=== PATIENT | female | born 1975 | race Caucasian/White ===

== ENCOUNTER 2016-11-13 15:36 | Emergency (ER) | payer MEDICARE, MEDICAID ==
--- NOTE | 2016-11-13 16:19 | ED Physician Documentation ---
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 has dental appt in few days. presently taking ibu and flexeril. plus HMP Onset: days ago (5-6) Context: denies: Fractured Tooth, Abscess Associated Symptoms: sore throat. denies: fever Worsened By: other (opening mouth-diff to speak) - ROS CONST: no problems CVS/RESP: none GI/: denies: problems urinating MS/SKIN/LYMPH: denies: muscle aches NEURO/PSYCH: none - PAST HX Past History: other (recurrent TMJ ggh) Other History: none Allergies/Adverse Reactions: Allergies Allergy/AdvReac Type Severity Reaction Status Date / Time caffeine Allergy Intermediate Hives Verified 10/28/16 23:41 [From Excedrin Aspirin Free] Home Medications: Ambulatory Orders Medication Instructions Recorded Lorazepam [Lorazepam] 1 tab PO TID 08/27/15 Prazosin HCl [Minipress] 1 tab PO HS 08/27/15 Cyclobenzaprine HCl [Flexeril] 10 mg PO D 06/19/16 QUEtiapine FUMARATE [Seroquel] 07/07/16 Trazodone HCl [Trazodone HCl] 100 mg PO D 07/07/16 - SOCIAL HX Smoking History: less than 1 pack/day Alcohol Use: none Drug Use: none - FAMILY HX Family History: No - VITAL SIGNS Vital Signs: Vital Signs Temp Pulse Resp BP Pulse Ox 98.2 F 111 H 16 114/55 98 11/13/16 15:57 11/13/16 15:57 11/13/16 15:57 11/13/16 15:57 11/13/16 15:57 - REVIEWED ASSESSMENTS Nursing Assessment Reviewed: Yes Vitals Reviewed: Yes Dental Pain Physical Exam - EXAM General Appearance: moderate distress Head/Neck: head nml inspection, mandibular swelling (L), cervical lymphadenopathy Mouth/Throat: lips nml, gums nml Ear/Nose: nml inspection Respiratory: no resp. distress, breath sounds nml CVS: reg. rate & rhythm, heart sounds nml Abdomen: soft, non-tender Extremities: non-tender, nml ROM Skin: warm/dry, normal color. No: cyanosis, diaphoresis, jaundice Neuro/Psych: depression. No: weakness, numbness Discharge Clincal Impression: acute exaberation chronic TMJ syndrome Home Medications: Ambulatory Orders Lorazepam [Lorazepam] 1 tab PO TID 08/27/15 Prazosin HCl [Minipress] 1 tab PO HS 08/27/15 Cyclobenzaprine HCl [Flexeril] 10 mg PO D 06/19/16 QUEtiapine FUMARATE [Seroquel] 07/07/16 Trazodone HCl [Trazodone HCl] 100 mg PO D 07/07/16 Comments: see dentist as scheduled Condition: Good Disposition: 01 HOME, SELF-CARE Decision to Admit: NO Decision Time: 16:23
[2016-11-13 16:28] VITALS: BP 117/72
== END 2016-11-13 16:25 | disposition home or self-care (01) ==
LOC: ED 15:36
DX: M26.629 Arthralgia of temporomandibular joint, unspecified side (principal)
CPT/HCPCS: 99282

== ENCOUNTER 2016-12-24 01:02 | Emergency (ER) | payer MEDICARE, MEDICAID ==
[2016-12-24] MEDS: ACETAMINOPHEN 500 MG TABLET PO ONE (01:34)
[2016-12-24] MEDS: AMOXICILLIN 500 MG CAPSULE PO ONE (01:34)
--- NOTE | 2016-12-24 01:36 | ED Physician Documentation ---
Sore Throat/Dental Pain - HISTORIAN Historian: patient - HPI Stated Complaint: dental pain Chief Complaint: Dental Pain Additional Information: Toothache x 2 days with taste of infection in her mouth. Recent dental extraction in the last week. Will see new dentist in that office soon. - ROS CONST: no problems - PAST HX Past History: none (right sided extraction a few days ago.) Other History: other (bipolar) Allergies/Adverse Reactions: Allergies Allergy/AdvReac Type Severity Reaction Status Date / Time caffeine Allergy Intermediate Hives Verified 12/24/16 01:19 [From Excedrin Aspirin Free] Home Medications: Ambulatory Orders Medication Instructions Recorded Lorazepam [Lorazepam] 1 tab PO QID 08/27/15 Prazosin HCl [Minipress] 1 tab PO HS 08/27/15 Cyclobenzaprine HCl [Flexeril] 10 mg PO D 06/19/16 QUEtiapine FUMARATE [Seroquel] 200 mg PO BID 07/07/16 Amoxicillin [Trimox] 500 mg PO TID #30 capsule 12/24/16 - SOCIAL HX Smoking History: cigarettes - FAMILY HX Family History: No - VITAL SIGNS Vital Signs: Vital Signs Temp Pulse Resp BP Pulse Ox 98.7 F 96 H 16 129/87 98 12/24/16 01:05 12/24/16 01:05 12/24/16 01:05 12/24/16 01:05 12/24/16 01:05 - REVIEWED ASSESSMENTS Nursing Assessment Reviewed: Yes Vitals Reviewed: Yes ED Results Lab/Radiology - Orders Orders: ED Orders Category Date Time Status Acetaminophen [Tylenol Extra Strength] Med 12/24/16 01:32 Once 1,000 mg PO NOW ONE Amoxicillin [Amoxil] Med 12/24/16 01:30 Once 500 mg PO NOW ONE Dental Pain Physical Exam - EXAM General Appearance: alert, mild distress Head/Neck: head nml inspection, trachea midline, no lymphadenopathy, other (#12 fractured with 1/4 visible tooth absent) Eyes: eyes nml inspection Mouth/Throat: lips nml, pharynx nml, voice nml, no drooling, no air way problems Ear/Nose: nml inspection Respiratory: no resp. distress Extremities: nml ROM (gait) Skin: warm/dry, normal color Neuro/Psych: No: weakness Discharge Clincal Impression: Pain due to dental caries Prescriptions: Amoxicillin [Trimox] 500 mg PO TID #30 capsule Additional Instructions: Take all the antibiotics as prescribed. See the dentist as soon as possible. Home Medications: Ambulatory Orders Lorazepam [Lorazepam] 1 tab PO QID 08/27/15 Prazosin HCl [Minipress] 1 tab PO HS 08/27/15 Cyclobenzaprine HCl [Flexeril] 10 mg PO D 06/19/16 QUEtiapine FUMARATE [Seroquel] 200 mg PO BID 07/07/16 Amoxicillin [Trimox] 500 mg PO TID #30 capsule 12/24/16 Condition: Fair Disposition: 01 HOME, SELF-CARE Decision to Admit: NO Decision Time: 01:35
[2016-12-24 01:43] VITALS: BP 140/78
== END 2016-12-24 01:40 | disposition home or self-care (01) ==
LOC: ED 01:02
DX: K02.9 Dental caries, unspecified (principal)
CPT/HCPCS: 99282; 99283

== ENCOUNTER 2017-02-13 11:44 | Outpatient (CLI) | payer MEDICARE, OTHER | END 2017-02-13 11:45 | LOC: LAB 11:44 | PROVIDERS: ATTEND Family Medicine | DX: D35.2 Benign neoplasm of pituitary gland (principal) | CPT/HCPCS: 36415; 84146; 84443 ==

== ENCOUNTER 2017-03-27 10:59 | Outpatient (CLI) | payer MEDICARE, OTHER | END 2017-03-27 11:00 | LOC: LAB 10:59 | PROVIDERS: ATTEND Neurological Surgery | DX: D35.2 Benign neoplasm of pituitary gland (principal) | CPT/HCPCS: 36415; 82533; 83003; 83525; 84146; 84439; 84443; 84479 ==

== ENCOUNTER 2017-08-30 14:33 | Outpatient (CLI) | payer MEDICARE, OTHER ==
[2017-08-30 14:53] LABS: BASOPHILS % 0.2 (0.0-1.5); EOSINOPHILS % 3.5 % (0.0-6.8); MEAN CORPUSCULAR HEMOGLOBIN 26.6 pg (28.0-34.0); MEAN CORPUSCULAR VOLUME 82.1 fl (80.0-100.0); MONOCYTES % 2.9 % (0.0-11.0); NEUTROPHILS # 4.1 # k/uL (1.4-7.7)
== END 2017-08-30 14:34 ==
LOC: LAB 14:33
PROVIDERS: ATTEND Psychiatry & Neurology Psychiatry
DX: Z79.899 Other long term (current) drug therapy (principal)
CPT/HCPCS: 36415; 80156; 85025

== ENCOUNTER 2017-09-19 09:27 | Emergency (ER) | payer MEDICARE, OTHER ==
--- NOTE | 2017-09-19 09:40 | ED Physician Documentation ---
Nausea/Vomiting/Diarrhea - HISTORIAN Historian: patient - HPI Stated Complaint: nausea vomiting and diarrhea since Sunday Chief Complaint: Nausea,Vomiting,Diarrhea Onset: days ago Duration: constant Last known Well Date: 09/08/17 Last Known Well Time: 10:00 Last known Well Code/Unknown Code: Unknown Timing: gradual onset Context: denies: out of country travel, bad food, recent trauma Severity: moderate Further Comments: no - Associated Symptoms Vomiting: frequent. denies: bloody, bilious, feculent Diarrhea: copious, watery. denies: mucous, bloody, blood-streaked Abdominal Pain: cramping, aching - ROS CONST: chills. denies: recent illness CVS/RESP: denies: shortness of breath, cough GI/: denies: constipation, black stools, bloody urine, bloody stools, dark urine, problems urinating EYES/ENT: denies: problems with vision, sore throat MS/SKIN/LYMPH: denies: rash, swollen glands, ankle swelling NEURO/PSYCH: headache. denies: fainting, anxiety - PAST HX Past History: none Other History: other Surgeries/Procedures: other Immunizations: referred to PCP Allergies/Adverse Reactions: Allergies Allergy/AdvReac Type Severity Reaction Status Date / Time caffeine Allergy Intermediate Hives Verified 09/19/17 09:51 [From Excedrin Aspirin Free] Home Medications: Ambulatory Orders Medication Instructions Recorded Lorazepam [Lorazepam] 1 tab PO TID 08/27/15 Prazosin HCl 1 mg PO DAILY av 07/18/17 Carbamazepine [Tegretol Xr] 200 mg PO BID 09/19/17 Fluphenazine HCl [Prolixin] 2.5 mg PO DAILY 09/19/17 Ondansetron HCl Rapdis [Zofran Odt] 4 mg PO Q8 #20 tab 09/19/17 - SOCIAL HX Smoking History: cigarettes Alcohol Use: none Drug Use: none - FAMILY HX Family History: none - VITAL SIGNS Vital Signs: Vital Signs Temp Pulse Resp BP Pulse Ox 96.7 F L 105 H 20 112/67 98 09/19/17 09:27 09/19/17 09:27 09/19/17 09:27 09/19/17 09:27 09/19/17 09:27 - REVIEWED ASSESSMENTS Nursing Assessment Reviewed: Yes Vitals Reviewed: Yes ED Results Lab/Radiology - Lab Results Lab Results: Lab Results 09/19/17 09/19/17 09:50 09:50 WBC 7.50 K/ul K/ul (4.00-12.00) RBC 4.84 M/ul M/ul (3.90-5.20) Hgb 12.9 g/dL g/dL (12.0-16.0) Hct 39.9 % % (34.5-46.5) MCV 82.3 fl fl (80.0-100.0) MCH 26.6 pg L pg (28.0-34.0) MCHC 32.3 g/dL g/dL (30.0-36.0) RDW 14.2 % % (11.3-14.3) Plt Count 262 K/mm3 K/mm3 (130-400) Neut % (Auto) 62.9 % % (39.0-79.0) Lymph % (Auto) 26.0 % % (16.0-50.0) [place] % (Auto) 5.0 % % (0.0-11.0) Eos % (Auto) 5.1 % % (0.0-6.8) Baso % (Auto) 0.3 (0.0-1.5) Neut # (Auto) 4.7 # k/uL # k/uL (1.4-7.7) Lymph # (Auto) 2.0 # k/uL # k/uL (0.6-4.0) [place] # (Auto) 0.4 # k/uL # k/uL (0.0-0.9) Eos # (Auto) 0.4 # k/uL # k/uL (0.0-0.6) Baso # (Auto) 0.0 # k/uL # k/uL (0.0-0.5) Reactive Lymphs % 0.8 % % (0.0-5.0) Reactive Lymphs # 0.1 # k/uL # k/uL (0.0-0.8) Sodium 137 mmol/L mmol/L (136-145) Potassium 4.0 mmol/L mmol/L (3.5-5.1) Chloride 102 mmol/L mmol/L (98-107) Carbon Dioxide 27 mmol/L mmol/L (22-30) BUN 11 mg/dL mg/dL (7-17) Creatinine 0.60 mg/dL mg/dL (0.52-1.04) Estimated Creat Clear 283 Est GFR ( Amer) > 60 (60 - ) Est GFR (Non-Af Amer) > 60 (60 - ) Glucose 122 mg/dL H mg/dL (74-106) Calcium 8.9 mg/dL mg/dL (8.4-10.2) Total Bilirubin 0.2 mg/dL mg/dL (0.2-1.3) AST 41 U/L U/L (15-46) ALT 46 U/L U/L (13-69) Alkaline Phosphatase 97 U/L U/L (38-126) Total Protein 7.4 g/dL g/dL (6.3-8.2) Albumin 4.0 g/dL g/dL (3.5-5.0) - Orders Orders: ED Orders Category Date Time Status Place IV Lock 1T Care 09/19/17 09:46 Active CBC/PLATELET/DIFF Routine Lab 09/19/17 09:50 Completed CMP [CMP] Routine Lab 09/19/17 09:50 Completed UA W/MICRO IF INDICATED Routine Lab 09/19/17 09:47 Uncollected 0.9 % Sodium Chloride [Normal Saline] 1,000 ml Med 09/19/17 09:47 Discontinued IV Q1H Ondansetron HCl/Pf [Zofran 4 mg/2 ml] Med 09/19/17 09:49 Discontinued 4 mg IVP NOW ONE Nausea Physical Exam - EXAM General Appearance: no acute distress EENT: eye inspection normal Neck: normal inspection Respiratory: no resp distress, chest non-tender, breath sounds normal CVS: reg rate & rhythm, heart sounds normal, equal pulses, no murmur Abdomen: non-tender, no organomegaly, abnml bowel sounds (hyperactive ). No: guarding, McBurney's point tender, Rovsing's sign Skin: warm/dry, normal color Extremities: non-tender, normal range of motion Neuro/Psych: oriented X3, CN's nml as tested Discharge Clincal Impression: Gastroenteritis Prescriptions: Ondansetron HCl Rapdis [Zofran Odt] 4 mg PO Q8 #20 tab Referrals: Taylor Riley MD [Primary Care Provider] - 2 Days Condition: Stable Disposition: 01 HOME, SELF-CARE Decision to Admit: NO Date of Decison to Admit: 09/19/17 Decision Time: 11:02
[2017-09-19 09:58] LABS: BASOPHILS % 0.3 (0.0-1.5); EOSINOPHILS % 5.1 % (0.0-6.8); MEAN CORPUSCULAR HEMOGLOBIN 26.6 pg (28.0-34.0); MEAN CORPUSCULAR VOLUME 82.3 fl (80.0-100.0); NEUTROPHILS # 4.7 # k/uL (1.4-7.7)
[2017-09-19 10:06] LABS: eGFR (African) > 60; eGFR (Non-African) > 60
[2017-09-19] MEDS: 0.9 % SODIUM CHLORIDE 1,000 ML IV ONE (10:06)
[2017-09-19] MEDS: ONDANSETRON HCL/PF 4 MG/ 2ML VIAL IVP ONE (10:07)
[2017-09-19 11:15] VITALS: BP 121/65
== END 2017-09-19 11:15 | disposition home or self-care (01) ==
LOC: ED 09:27
DX: K52.9 Noninfective gastroenteritis and colitis, unspecified (principal)
CPT/HCPCS: 80053; 85025; J2405; J7030; 96361; 96374; 99283; S1016

== ENCOUNTER 2017-12-19 16:00 | Outpatient (CLI) | payer MEDICARE, OTHER ==
[2017-12-19 16:14] LABS: BASOPHILS % 0.4 (0.0-1.5); EOSINOPHILS % 3.1 % (0.0-6.8); MEAN CORPUSCULAR HEMOGLOBIN 27.5 pg (28.0-34.0); MONOCYTES % 4.1 % (0.0-11.0); NEUTROPHILS # 5.6 # k/uL (1.4-7.7)
== END 2017-12-19 16:03 ==
LOC: LAB 16:00
PROVIDERS: ATTEND Physician Assistant
DX: K92.1 Melena (principal); R53.1 Weakness
CPT/HCPCS: 36415; 85025

== ENCOUNTER 2018-03-05 21:30 | Emergency (ER) | payer MEDICARE, OTHER ==
--- NOTE | 2018-03-05 21:43 | ED Physician Documentation ---
Headache - HISTORIAN Historian: patient - HPI Stated Complaint: headache Chief Complaint: Headache Onset: hours (1) Timing: abrupt, unsure, still present, persistent New Gradual Onset: No Exposure To: none Severity: moderate Quality: pain, sharp Associated Symptoms: problems with vision, sensitivity to light. denies: fever , chills, sweating, nausea, vomiting, neck pain, stiffness, speech problems, weakness, trouble walking, tingling, numbness, dizziness, light-headedness Preceding Symptoms: visual disturbance Exacerbated By: light, noise, movement, position Further Comments: yes (She reports she has migraines but this one "is different " located on left side of head with sharp pain that started 1 hour ago approx. denies any head injury . She denies any nausea. She did try tylenol at home with no relief. She states the pain is 5 on 1/10 scale. She denies any loss of control of any limbs. She is able to walk normally. Denies any changes in LOC or speech . She has no other complaints at this time .) - ROS NEURO/PSYCH: denies: confusion, anxiety, depression, fainting EYES/ENT: denies: difficulty swallowing, sinus pain CVS/RESP: denies: chest pain, shortness of breath, cough GI/: denies: abdominal pain, diarrhea, problems urinating, incontinence MS/SKIN/LYMPH: denies: back pain, rash all systems neg except as marked: Yes - PAST HX Medical History: other (migraine, anxiety, depression ) Surgical History: other Immunizations: UTD Allergies/Adverse Reactions: Allergies Allergy/AdvReac Type Severity Reaction Status Date / Time acetaminophen Allergy Mild Rash Verified 03/05/18 23:56 [From Excedrin Tension Headache] caffeine Allergy Mild Rash Verified 03/05/18 23:56 [From Excedrin Tension Headache] Home Medications: Ambulatory Orders Medication Instructions Recorded Lorazepam [Lorazepam] 1 tab PO TID 08/27/15 Prazosin HCl 2 mg PO DAILY av 07/18/17 Carbamazepine [Tegretol Xr] 200 mg PO BID 09/19/17 Fluphenazine HCl [Prolixin] 10 mg PO HS 09/19/17 Ondansetron HCl Rapdis [Zofran Odt] 4 mg PO Q8 #20 tab 09/19/17 Acetaminophen [Tylenol Extra 500 mg PO Q6 PRN 03/05/18 Strength] Diphenhydramine HCl [Afpwe-L-Hqwo] 25 mg PO Q4 PRN 03/05/18 Paliperidone [Invega] 3 mg PO DAILY 03/05/18 - SOCIAL HX Smoking History: non-smoker Alcohol Use: none Drug Use: none - Family HX Family History: none - VITAL SIGNS Vital Signs: Vital Signs Temp Pulse Resp BP Pulse Ox 98.4 F 16 L 88 H 106/66 98 03/05/18 23:30 03/05/18 23:30 03/05/18 23:30 03/05/18 23:30 03/05/18 23:30 - REVIEWED ASSESSMENTS Nursing Assessment Reviewed: Yes Vitals Reviewed: Yes Progress - Progress Progress: 2240: in bed states pain continues to be 5/10 and she is doing "ok" - CT was normal so will continue with meds to help with pain and she is agreeable. DG 2300: reports pain is now 3 /10 scale. she feels better DG ED Results Lab/Radiology - Lab Results Lab Results: Lab Results 03/05/18 03/05/18 22:50 22:50 WBC 7.50 K/ul K/ul (4.00-12.00) RBC 4.52 M/ul M/ul (3.90-5.20) Hgb 12.0 g/dL g/dL (12.0-16.0) Hct 38.3 % % (34.5-46.5) MCV 84.7 fl fl (80.0-100.0) MCH 26.6 pg L pg (28.0-34.0) MCHC 31.4 g/dL g/dL (30.0-36.0) RDW 13.5 % % (11.3-14.3) Plt Count 236 K/mm3 K/mm3 (130-400) Neut % (Auto) 63.5 % % (39.0-79.0) Lymph % (Auto) 29.2 % % (16.0-50.0) [place] % (Auto) 4.0 % % (0.0-11.0) Eos % (Auto) 2.6 % % (0.0-6.8) Baso % (Auto) 0.2 (0.0-1.5) Neut # (Auto) 4.8 # k/uL # k/uL (1.4-7.7) Lymph # (Auto) 2.2 # k/uL # k/uL (0.6-4.0) [place] # (Auto) 0.3 # k/uL # k/uL (0.0-0.9) Eos # (Auto) 0.2 # k/uL # k/uL (0.0-0.6) Baso # (Auto) 0.0 # k/uL # k/uL (0.0-0.5) Reactive Lymphs % 0.5 % % (0.0-5.0) Reactive Lymphs # 0.0 # k/uL # k/uL (0.0-0.8) Sodium 141 mmol/L mmol/L (136-145) Potassium 3.7 mmol/L mmol/L (3.5-5.1) Chloride 104 mmol/L mmol/L (98-107) Carbon Dioxide 25 mmol/L mmol/L (22-30) BUN 10 mg/dL mg/dL (7-17) Creatinine 0.60 mg/dL mg/dL (0.52-1.04) Estimated Creat Clear 299 Est GFR ( Amer) > 60 (60 - ) Est GFR (Non-Af Amer) > 60 (60 - ) Glucose 166 mg/dL H mg/dL (74-106) Calcium 9.2 mg/dL mg/dL (8.4-10.2) Total Bilirubin 0.5 mg/dL mg/dL (0.2-1.3) AST 61 U/L H U/L (15-46) ALT 46 U/L U/L (13-69) Alkaline Phosphatase 106 U/L U/L (38-126) Total Protein 7.8 g/dL g/dL (6.3-8.2) Albumin 4.2 g/dL g/dL (3.5-5.0) - Radiology Radiology Impressions: CT head History: SEVERE HEADACHE, DIZZINESS, STARTED TONIGHT APPROX 2030 Multiple axial images of the brain are submitted with reconstructions No comparison studies No evidence of acute intracranial hemorrhage. No midline shift. No hydrocephalus. Paranasal air sinuses and mastoid air cells are well aerated. Dental hardware causing artifact. Impression: 1. No evidence of acute intracranial hemorrhage. No midline shift. No hydrocephalus Electronically signed on March 05, 2018 10:17:48 PM CDT by: Roxanna Yoder - Orders Orders: ED Orders Category Date Time Status IV Started NOW Care 03/05/18 21:[address] BRAIN W/O CONTRAST Stat Exams 03/05/18 Completed CBC/PLATELET/DIFF Stat Lab 03/05/18 22:50 Completed CMP Stat Lab 03/05/18 22:50 Completed 0.9 % Sodium Chloride [Normal Saline] 1,000 ml Med 03/05/18 21:47 Discontinued IV Q1H Dexamethasone Sod Phosphate [Decadron] Med 03/05/18 22:37 Discontinued 4 mg IVP NOW ONE Ketorolac Tromethamine [Toradol] Med 03/05/18 22:36 Discontinued 30 mg IVP NOW ONE Headache Physical Exam - EXAM General Appearance: no acute distress, alert EENT: no facial swelling, PERRL, nml ENT. No: tender temporal artery, pain over sinuses Neck: normal inspection, thyroid normal, supple Respiratory: no resp distress, chest non-tender, breath sounds normal CVS: reg. rate & rhythm, heart sounds nml Abdomen: non-tender, no organomegaly, nml bowel sounds, no distention Skin: color nml, no rash Extremitites: non-tender, normal range of motion, no evidence of injury, no edema - NEURO/PSYCH Higher Functions: alert, oriented x3, nml speech, mood/affect nml Cranial: nml as tested, no evidence of acute CVA Cerebellar: nml as tested Sensorimotor: motor nml, sensation nml Discharge Clincal Impression: Migraine Qualifiers: Migraine type: other Status migrainosus presence: without status migrainosus Intractability: not intractable Qualified Code(s): G43.809 - Other migraine, not intractable, without status migrainosus Referrals: Taylor Riley MD [Primary Care Provider] - 2 Days Additional Instructions: 1. Continue meds 2. Increase fluids 3. Rest today 4. Follow up on PCP for headache changes 5. Return to ER for increasing headache or concerns Condition: Stable Disposition: 01 HOME, SELF-CARE Decision to Admit: NO Date of Decison to Admit: 03/05/18 Decision Time: 23:20
[2018-03-05] MEDS: 0.9 % SODIUM CHLORIDE 1,000 ML IV ONE (22:40)
[2018-03-05] MEDS: DEXAMETHASONE SOD PHOS 4 MG/ML VIAL IVP ONE (22:50)
[2018-03-05] MEDS: KETOROLAC TROMETHAMINE 30 MG/1ML VIAL IVP ONE (22:50)
[2018-03-05 23:11] LABS: BASOPHILS % 0.2 (0.0-1.5); EOSINOPHILS % 2.6 % (0.0-6.8); MEAN CORPUSCULAR HEMOGLOBIN 26.6 pg (28.0-34.0); MEAN CORPUSCULAR VOLUME 84.7 fl (80.0-100.0); NEUTROPHILS # 4.8 # k/uL (1.4-7.7)
[2018-03-05 23:12] LABS: eGFR (African) > 60; eGFR (Non-African) > 60
[2018-03-05 23:14] VITALS: BP 106/66
--- NOTE | 2018-03-06 06:54 | Diagnostic Imaging Report ---
BROOKS WOLF [facility] [id number] [facility] [address] [place], [place]. [address] Report Submission Date: March 05, 2018 10:17:48 PM CDT Patient Study Name: JAMIA SUMMERS Date: March 05, 2018 10:03:21 PM CDT Modality Type: CT\SR Gender: F Description: CT BRAIN W/O CONTRAST : 79 Institution: [facility] Physician: BROOKS WOLF CT head History: SEVERE HEADACHE, DIZZINESS, STARTED TONIGHT APPROX 2029 Multiple axial images of the brain are submitted with reconstructions No comparison studies No evidence of acute intracranial hemorrhage. No midline shift. No hydrocephalus. Paranasal air sinuses and mastoid air cells are well aerated. Dental hardware causing artifact. Impression: 1. No evidence of acute intracranial hemorrhage. No midline shift. No hydrocephalus Electronically signed on March 05, 2018 10:17:48 PM CDT by: Roxanna WHITFIELD
== END 2018-03-05 23:30 | disposition home or self-care (01) ==
LOC: ED 21:30
DX: G43.809 Other migraine, not intractable, without status migrainosus (principal)
CPT/HCPCS: 70450; 80053; 85025; J1100; J1885; J7030; 96365; 96375; 99283; S1016

== ENCOUNTER 2019-10-08 22:04 | Emergency (ER) | payer MEDICARE, OTHER ==
--- NOTE | 2019-10-08 22:21 | ED Physician Documentation ---
Lower Extremity Problem - HISTORIAN Historian: patient - HPI Chief Complaint: Lower Extremity Problem Additional Information: 44 year old female noticed a knot on the top of her left foot this morning; denies any injury or trauma; decided to have it looked at this evening. Location of Injury: L foot Onset: hours Timing: still present Duration: sudden-Onset Recent Injury: No Where: home Severity: mild Quality: denies: pain, swelling, tenderness Exacerbated By: nothing Relieved By: nothing Associated Symptoms: denies: chest pain, shortness of breath - ROS CONST: no problems MS/SKIN/LYMPH: none CVS/RESP: none GI/: none EYES/ENT: none NERUO/PSYCH: denies: headache - PAST HX Past History: none PE Risk Factors: other (anxiety and depression) Allergies/Adverse Reactions: Allergies Allergy/AdvReac Type Severity Reaction Status Date / Time acetaminophen Allergy Unknown Verified 10/08/19 22:25 [From Excedrin Migraine] aspirin Allergy Unknown Verified 10/08/19 22:25 [From Excedrin Migraine] caffeine Allergy Unknown Verified 10/08/19 22:25 [From Excedrin Migraine] Home Medications: Ambulatory Orders Medication Instructions Recorded NK 10/08/19 - SOCIAL HX Smoking History: less than 1 pack/day Alcohol Use: none Drug Use: none - FAMILY HX Family History: none - VITAL SIGNS Vital Signs: Vital Signs Temp Pulse Resp BP Pulse Ox 97.4 F L 91 H 18 118/69 98 10/08/19 22:16 10/08/19 22:16 10/08/19 22:16 10/08/19 22:16 10/08/19 22:16 - REVIEWED ASSESSMENTS Nursing Assessment Reviewed: Yes Vitals Reviewed: Yes ED Results Lab/Radiology - Radiology Radiology Impressions: Left foot, three views. History: Midfoot pain, no known injury Findings: The osseous structures are intact without acute fracture. The joint space and alignment are normal. There is no soft tissue swelling. Impression: 1. No acute osseous abnormality. Electronically signed on Oct 08, 2019 10:27:48 PM [employer] by: Bryant Wahl - Orders Orders: ED Orders Category Date Time Status FOOT 3 VIEWS OR MORE [RAD] Stat Exams 10/08/19 Ordered Lower Extremity Problem - EXAM General Appearance: no distress Hips: bilateral hip: non-tender, normal inspection, normal range of motion, no evidence of injury Legs: bilateral: non-tender, normal inspection, normal range of motion, no evidence of injury Knees: bilateral: non-tender, normal inspection, normal range of motion, no evidence of injury Ankle: bilateral: non-tender, normal inspection, normal range of motion, no evidence of injury Foot: left foot: bone tenderness Neuro/Tendon: normal sensation, normal motor functions EENT: eye inspection normal, ENT inspection normal RESPIRATORY: breath sounds normal CVS: heart sounds normal JOINT: joints nml, nml ROM, Nml gait/weight bearing VASCULAR: no vascular compromise, pulses full/equal NEURO/PSYCH: oriented X3, motor nml, sensation nml, mood/affect nml, cognition normal SKIN: warm/dry, normal color BACK: normal inspection Discharge Clincal Impression: left foot lump Referrals: Taylor Riley MD [Primary Care Provider] - 2 Days Additional Instructions: Knot on foot should eventually go away May use ice/hot for comfort Alternate Tylenol and Ibuprofen as needed for discomfort Follow up with PCP as needed Condition: Good Disposition: 01 HOME, SELF-CARE Decision to Admit: NO Decision Time: 22:44
[2019-10-08 22:23] VITALS: BP 118/69
--- NOTE | 2019-10-08 22:32 | Diagnostic Imaging Report ---
PATIENT MR#: [id number] PATIENT PATIENT NAME: JAMIA SUMMERS DATE OF : 1975 REFERRING PHYSICIAN: Sonia Moura EXAM DATE: 10/08/2019 ACCESSION NUMBER: [id number] EXAM DESCRIPTION: FOOT 3 VIEWS OR MORE Left foot, three views. History: Midfoot pain, no known injury Findings: The osseous structures are intact without acute fracture. The joint space and alignment are normal. There is no soft tissue swelling. Impression: 1. No acute osseous abnormality. Read by: Dr. Bryant Wahl Transcribed by: Transcribed Date: Electronically signed by: Dr. Bryant Wahl Date signed: 10/08/2019 10:31:45 PM
== END 2019-10-08 22:40 | disposition home or self-care (01) ==
LOC: ED 22:04
DX: R22.9 Localized swelling, mass and lump, unspecified (principal)
CPT/HCPCS: 73630; 99282; 99283